=== PATIENT | female | born 1950 | race Caucasian/White ===

== ENCOUNTER → 2017-12-22 15:13 | Outpatient (CLI) | payer MEDICARE ==
[2012-12-21 08:41] VITALS: BMI 35.5
[2017-12-22 15:45] LABS: APPEARANCE HAZY (CLEAR); BILIRUBIN NEGATIVE (NEGATIVE); COLOR YELLOW (YELLOW); GLUCOSE NEGATIVE (NEGATIVE); KETONE NEGATIVE (NEGATIVE); NITRITE NEGATIVE (NEGATIVE); PROTEIN NEGATIVE (NEGATIVE); SPECIFIC GRAVITY 1.015 (1.005-1.020); UROBILINOGEN NORMAL (NORMAL)
[2017-12-22 15:49] LABS: RED CELLS - URINE 0-5 /hpf (0-5)
[2017-12-22 15:50] LABS: BACTERIA MODERATE /hpf (NONE SEEN); EPITHELIAL CELLS 0-5 /hpf (0-5)
== END | disposition home or self-care (01) ==
LOC: D.LABREF 15:13
PROVIDERS: Family Medicine
DX: R35.0 Frequency of micturition (principal)

== ENCOUNTER 2018-11-15 13:07 | Emergency (ER) | payer MEDICARE, OTHER ==
[~2018-11-15] VITALS: Ht 160 cm; Wt 75.5 kg
[2018-11-15 13:09] VITALS: Ht 160 cm; Wt 75.5 kg
[2018-11-15 13:52] LABS: BASOPHILS 0.8 % (0-2); EOSINOPHILS 6.1 % (0-7); HEMATOCRIT 40.7 % (36.0-48.0); HEMOGLOBIN 13.8 g/dL (12-16); LYMPHOCYTES 34.2 % (15-50); MCH 29.2 pg (26.0-34.0); MCHC 33.9 g/dL (31.0-37.0); MCV 86.2 fL (80.0-100.0); MEAN PLATELET VOLUME 10.2 fL (7.4-10.4); MONOCYTES 6.5 % (2-11); NEUTROPHILS 52.4 % (40-80); PLATELET COUNT 251 10x3/uL (130-400); RBC 4.72 10x6/uL (4.00-5.40); RDW 13.9 % (11.5-14.5); WBC 4.9 10x3/uL (4.8-10.8)
[2018-11-15 14:11] LABS: ALBUMIN 3.2 g/dL (3.4-5.0); ALKALINE PHOSPHATASE 82 U/L (46-116); ALT (SGPT) 32 U/L (10-68); BILIRUBIN - TOTAL 0.39 mg/dL (0.2-1.3); CALC OSMOLALITY 286 mosm/kg (275-300); CALCIUM 9.1 mg/dL (8.5-10.1); CARBON DIOXIDE 27.5 mmol/L (21.0-32.0); CHLORIDE - SERUM 101 mmol/L (98-107); CREATININE - SERUM 1.3 mg/dL (0.6-1.3); GLUCOSE 90 mg/dL (74-106); POTASSIUM - SERUM 3.9 mmol/L (3.5-5.1); PROTEIN - SERUM 6.7 g/dL (6.4-8.2); SODIUM 140 mmol/L (136-145); UREA NITROGEN 36 mg/dL (7-18); eGFR NON AFRICAN AMERICAN 43 mL/min (90-120)
[2018-11-15 14:24] LABS: AMYLASE - SERUM 40 U/L (25-115); CKMB 0.6 U/L (0.0-3.6); CREATINE KINASE 32 UL (21-215); LIPASE 148 U/L (73-393); TROPONIN-I < 0.017 ng/mL (0.000-0.060)
[2018-11-15] MEDS ORDERED: PEPCID AC20 MG PO (14:42)
[2018-11-15 15:38] LABS: APPEARANCE CLEAR (CLEAR); BILIRUBIN NEGATIVE (NEGATIVE); COLOR YELLOW (YELLOW); GLUCOSE NEGATIVE (NEGATIVE); KETONE NEGATIVE (NEGATIVE); NITRITE NEGATIVE (NEGATIVE); PROTEIN NEGATIVE (NEGATIVE); UROBILINOGEN NORMAL (NORMAL)
[2018-11-15 16:12] VITALS: BP 126/79
== END 2018-11-15 16:12 | disposition home or self-care (01) ==
LOC: D.ER 13:07
PROVIDERS: Emergency Medicine
DX: R10.12 Left upper quadrant pain (principal); E86.0 Dehydration